=== PATIENT | female | born 2000 | race Caucasian/White ===

== ENCOUNTER 2019-05-12 12:52 | Emergency (ER) | payer MEDICAID, OTHER ==
[~2019-05-12] VITALS: Ht 162.6 cm; Wt 87.1 kg
--- OUTSIDE RECORDS SUMMARY | 2019-05-12 12:59 | XMS REPORT | Continuity of Care Document ---
Author Organization Unknown Address Unknown Phone Unavailable Allergies There is no data. Medications There is no data. Problems There is no data. Procedures There is no data. Results Test Result Range GC/CHLAMYDIA (SWAB OR URINE)-RAPID - 12/12/18 16:49 CHLAMYDIA TRACHOMATIS RNA, TMA NOT DETECTED NOT DETECTED NEISSERIA GONORRHOEAE RNA, TMA NOT DETECTED NOT DETECTED COMMENT NRG TSH w/ FREE T4 - 12/31/18 16:33 TSH 72.51 mIU/L NRG T4, FREE 0.5 ng/dL 0.8-1.4 Encounters ACCT No. Visit Date/Time Discharge Status Pt. Type Provider Facility Loc./Unit Complaint [id number] 04/17/2019 08:20:00 04/17/2019 23:59:59 [facility] [id number] 12/31/2018 15:45:00 Document Registration [id number] 12/12/2018 14:15:00 Document Registration
[2019-05-12] MEDS ORDERED: NS IV 1000 ML 1,000 ML IV SCH ×2 (13:14→13:43)
[2019-05-12] MEDS ORDERED: ONDANSETRON 4 MG/2 ML (SDV) Z0FRAN IV PRN (13:15)
[2019-05-12] MEDS ORDERED: cefTRIAXone FOR IV USE 1,000 MG in WATER (STERILE) FOR INJECTION 10 ML IV ONE (13:15)
[2019-05-12] MEDS ORDERED: ACETAMINOPHEN 500 MG TAB (TYLENOL) PO PRN (13:15)
[2019-05-12] MEDS ORDERED: KETOROLAC 30 MG/ML VIAL IVP ONE (13:15)
--- NOTE | 2019-05-12 13:30 | ED General ---
General Chief Complaint: Fever-Adult/Adol Stated Complaint: FEVER Nursing Triage Note: Started feeling bad two days ago with fever, nausea, vomiting, and abdominal pain. Fever has been up to 102 at home. Today has also developed a headache and body weakness. States she has been outside but does not recall any tick bites. Has not been around anyone that is already sick. Denies urinary symptoms but states she has not been able to drink enough and her urine is a darker color. Nursing Sepsis Screen: Possible Sepsis Risk History of Present Illness Date Seen by Provider: May 12, 2019 Time Seen by Provider: 13:00 Initial Comments The patient is a 19-year-old otherwise healthy female who presents with concern for 2 days of high fevers, gradual onset bilateral frontal headache, body aches, nausea/vomiting (with several episodes of nonbloody vomiting each day) and malaise. She presented initially to the clinic for evaluation of this issue where workup included urinalysis, strep and testing which were all negative per report from the practitioner at the clinic from whom I took report, and she was then sent here for further evaluation and treatment. Patient is tachycardic and has a high fever upon arrival to the emergency department but is alert and oriented and pleasantly and appropriately interactive and in no significant distress and other vital signs are appropriate. She reports some dark colored urine and some low back pain but denies fevers, upper respiratory congestion/rhinorrhea, sore throat, cough, shortness of breath or chest pain, focal abdominal pain of any kind, flank pain, dysuria or hematuria, unusual vaginal discharge or bleeding, changes in bowel habits. Patient does reports spending quite a bit of time outside in her yard with her son the past few weeks. She does not recollect any tick contact. Allergies and Home Medications Allergies Coded Allergies: No Known Drug Allergies (Unverified , 05/12/19) Patient Home Medication List Home Medication List Reviewed: Yes Review of Systems Review of Systems Constitutional: see HPI All Other Systems Reviewed Negative Unless Noted: Yes (Negative excepted noted.) Past Udwzktw-Hzwdtp-Cgngym Hx Past Med/Social Hx: Reviewed Nursing Past Med/Soc Hx Patient Social History Alcohol Use: Denies Use Recreational Drug Use: No Smoking Status: Never a Smoker 2nd Hand Smoke Exposure: No Recent Foreign Travel: No Contact w/Someone Who Travel: No Recent Infectious Disease Expo: No Recent Hopitalizations: No Physical Abuse: No Sexual Abuse: No Mistreated: No Fear: No Seasonal Allergies Seasonal Allergies: No Past Medical History Surgeries: Yes Gallbladder Respiratory: No Cardiac: No Neurological: No Genitourinary: No Gastrointestinal: No Musculoskeletal: No Endocrine: Yes Hypothyroidsim HEENT: No Cancer: No Psychosocial: No Integumentary: No Family Medical History Reviewed Nursing Family Hx Physical Exam Vital Signs Vital Signs - First Documented 05/12/19 12:55 Temp 103.4 Pulse 121 Resp 20 B/P (MAP) 121/60 (80) Pulse Ox 100 Capillary Refill : Less Than 3 Seconds Height, Weight, BMI Height: 5'4.00" Weight: 192lbs. oz. 87.480478ga; BMI Method:Stated General Appearance: No Apparent Distress Comments This is a young female appearing nontoxic and in no acute distress. Head is normocephalic and atraumatic. Neck is supple and nontender and without stiffness/meningismus of any kind. Oropharynx is moist. Lungs are clear to auscultation at all stations. There is normal S1 and S2 without rubs or gallops and capillary refill is appropriate, less than 2 seconds globally. There is a tachycardic, regular rhythm. Abdomen is soft, nontender and nondistended. Skin is warm and dry without cyanosis, clubbing or edema. There are no rashes. There is no obvious lymphadenopathy appreciated. Psychiatrically, the patient demonstrates appropriate mood and affect and is alert. Focused Exam Lactate Level 05/12/19 13:30: Lactic Acid Level 0.75 Lactic Acid Level Laboratory Tests Test 05/12/19 13:30 Lactic Acid Level 0.75 MMOL/L (0.50-2.00) Progress/Results/Core Measures Suspected Sepsis Recent Fever Within 48 Hours: Yes Infection Criteria Present: Suspected New Infection New/Unexplained Altered Menta: No Sepsis Screen: Possible Sepsis Risk SIRS Temperature:103.4 Pulse: 121 Respiratory Rate: 20 Laboratory Tests 05/12/19 13:30: White Blood Count 7.6 Blood Pressure 121 /60 Mean: 80 05/12/19 13:30: Lactic Acid Level 0.75 Laboratory Tests 05/12/19 13:30: Creatinine 0.80, Platelet Count 149, Total Bilirubin 0.6 Results/Orders Lab Results Laboratory Tests Test 05/12/19 12:55 05/12/19 13:30 Range/Units Urine Color YELLOW Urine Clarity SLT CLOUDY Urine pH 6.0 5-9 Urine Specific [place] 1.020 1.016-1.022 Urine Protein 1+ H NEGATIVE Urine Glucose (UA) NEGATIVE NEGATIVE Urine Ketones NEGATIVE NEGATIVE Urine Nitrite NEGATIVE NEGATIVE Urine Bilirubin NEGATIVE NEGATIVE Urine Urobilinogen 1.0 NORMAL MG/DL Urine Leukocyte Esterase NEGATIVE NEGATIVE Urine RBC (Auto) NEGATIVE NEGATIVE Urine RBC NONE /HPF Urine WBC 2-5 /HPF Urine Squamous Epithelial Cells 10-25 H /HPF Urine Crystals NONE /LPF Urine Bacteria FEW H /HPF Urine Casts NONE /LPF Urine Mucus MODERATE H /LPF Urine Culture Indicated NO Urine Test NEGATIVE NEGATIVE White Blood Count 7.6 4.3-11.0 10^3/uL Red Blood Count 4.91 4.35-5.85 10^6/uL Hemoglobin 14.1 11.5-16.0 G/DL Hematocrit 43 35-52 % Mean Corpuscular Volume 87 80-99 FL Mean Corpuscular Hemoglobin 29 25-34 PG Mean Corpuscular Hemoglobin Concent 33 32-36 G/DL Red Cell Distribution Width 12.2 10.0-14.5 % Platelet Count 149 130-400 10^3/uL Mean Platelet Volume 11.3 H 7.4-10.4 FL Neutrophils (%) (Auto) 78 H 42-75 % Lymphocytes (%) (Auto) 13 12-44 % Monocytes (%) (Auto) 9 0-12 % Eosinophils (%) (Auto) 0 0-10 % Basophils (%) (Auto) 0 0-10 % Neutrophils # (Auto) 5.9 1.8-7.8 X 10^3 Lymphocytes # (Auto) 1.0 1.0-4.0 X 10^3 Monocytes # (Auto) 0.7 0.0-1.0 X 10^3 Eosinophils # (Auto) 0.0 0.0-0.3 10^3/uL Basophils # (Auto) 1.0 H 0.0-0.1 10^3/uL Sodium Level 136 135-145 MMOL/L Potassium Level 3.5 L 3.6-5.0 MMOL/L Chloride Level 98 98-107 MMOL/L Carbon Dioxide Level 20 L 21-32 MMOL/L Anion Gap 18 H 5-14 MMOL/L Blood Urea Nitrogen 9 7-18 MG/DL Creatinine 0.80 0.60-1.30 MG/DL Estimat Glomerular Filtration Rate > 60 BUN/Creatinine Ratio 11 Glucose Level 94 70-105 MG/DL Lactic Acid Level 0.75 0.50-2.00 MMOL/L Calcium Level 9.4 8.5-10.1 MG/DL Corrected Calcium 8.5-10.1 MG/DL Total Bilirubin 0.6 0.1-1.0 MG/DL Aspartate Amino Transf (AST/SGOT) 21 5-34 U/L Alanine Aminotransferase (ALT/SGPT) 24 0-55 U/L Alkaline Phosphatase 77 40-136 U/L Total Protein 8.0 6.4-8.2 GM/DL Albumin 4.6 H 3.2-4.5 GM/DL Monoscreen NEGATIVE NEGATIVE My Orders Orders - IAN TOMAS MD Cbc With Automated Diff (05/12/19 13:14) Comprehensive Metabolic Panel (05/12/19 13:14) Blood Culture (05/12/19 13:14) Urinalysis (05/12/19 13:14) Urine Culture (05/12/19 13:14) Chest 1 View Ap/Pa Only (05/12/19 13:14) Acetaminophen Tablet (Tylenol Tablet) (05/12/19 13:15) Ed Iv/Invasive Line Start (05/12/19 13:14) Ondansetron Injection (Zofran Injectio (05/12/19 13:15) Lactic Acid Analyzer (05/12/19 13:14) Ns Iv 1000 Ml (Sodium Chloride 0.9%) (05/12/19 13:14) Ketorolac Injection (Toradol Injection) (05/12/19 13:15) Ceftriaxone For Iv Use (Rocephin For I (05/12/19 13:15) Hcg,Qualitative Urine (05/12/19 13:14) Monotest (05/12/19 13:14) Tick Panel With Lyme Eia (05/12/19 13:14) Ns Iv 1000 Ml (Sodium Chloride 0.9%) (05/12/19 13:43) Doxycycline Hyclate Tablet (Vibramycin T (05/12/19 14:31) Medications Given in ED Current Medications Medications Dose Ordered Sig/Tanesha Route Start Time Stop Time Status Last Admin Dose Admin Acetaminophen 1,000 mg ONCE PRN PO 7/28/19 13:15 05/12/19 13:35 DC 05/12/19 13:26 1,000 MG Ceftriaxone Sodium 1000 mg/ Sterile Water 10 ml @ 200 mls/hr ONCE ONCE IV 05/12/19 13:15 05/12/19 13:17 DC 05/12/19 14:21 200 MLS/HR Ketorolac Tromethamine 30 mg ONCE ONCE IVP 05/12/19 13:15 05/12/19 13:17 DC 05/12/19 13:26 30 MG Ondansetron HCl 4 mg PRN PRN IV 05/12/19 13:15 05/12/19 13:35 DC 05/12/19 13:26 4 MG Vital Signs/I&O 05/12/19 12:55 Temp 103.4 Pulse 121 Resp 20 B/P (MAP) 121/60 (80) Pulse Ox 100 Capillary Refill : Less Than 3 Seconds Blood Pressure Mean: 80 Progress Note : Time: 13:31 Progress Note Otherwise healthy young woman who presents with fever of unclear etiology. Urine testing was reportedly negative in the clinic but will repeat this along with additional workup as noted SIRS criteria are met and so we will draw blood cultures and then given a dose of empiric Rocephin along with fluids and will reevaluate after workup is completed. Tick panel has been sent given a great deal of outdoor time over the last few weeks and if no source is found for the patient's fever and she feels better after treatment we will plan for dismissal on an empiric course of doxycycline with very close follow-up in the clinic in the next 1-2 days. She understands and agrees with this plan of care. Update 1436: Patient is feeling better and is less febrile upon reassessment after treatment here in the emergency department. Large workup is without significant evidence of acute process aside from a left shift on her CBC differential. There is no clear source for the patient's fever by testing completed this afternoon. Blood cultures have been drawn and a tick panel has been sent. On reevaluation the patient is able to range her neck fully in all dimensions and denies any neck stiffness although she notes that her neck is a little sore, similar to other parts of her body in the setting of this acute illness. I do not feel that she will benefit from a lumbar puncture at this time, but I have discussed with her that if she develops significant neck stiffness/rigidity or any other new or severely worsened symptoms or concerns that she should return right away to the emergency department for reevaluation. We will have the patient followed up in the clinic tomorrow and will write her a work note. We will discharge with empiric doxycycline, Zofran for nausea and ibuprofen and Tylenol for fever and discomfort and the patient is to rest and copiously hydrated and, as above, see her physician tomorrow. All questions are answered. We will proceed with discharge home at this time. Diagnostic Imaging Comments XR chest: no acute process, EP interp Departure Impression Primary Impression: Fever Disposition: 01 HOME, SELF-CARE Condition: Improved Departure-Patient Inst. Decision time for Depature: 14:40 Referrals: CHEMA HEATH APRN (Family) Primary Care Physician Patient Instructions: Fever of Unknown Origin (DC) Add. Discharge Instructions: Take the doxycycline antibiotic twice a day for the next 10 days. Alternate ibuprofen and Tylenol as discussed for fever and discomfort. You may use Zofran under the tongue for nausea and vomiting. Rest and drink plenty of fluids. Return to the emergency department immediately if you develop worsening symptoms or any other new symptoms of concern. Follow up with your primary care doctor tomorrow at the appointment we have made for you. Scripts Ondansetron (Ondansetron Odt) 4 Mg Tab.rapdis 4 MG PO Q8H, #10 TAB Prov: IAN TOMAS MD 05/12/19 Acetaminophen (Tylenol Extra Strength) 500 Mg Tablet 1000 MG PO Q8H for Pain, #50 TAB Prov: IAN TOMAS MD 05/12/19 Ibuprofen (Ibuprofen) 800 Mg Tablet 800 MG PO Q8H PRN for PAIN, #30 TAB 0 Refills Prov: IAN TOAMS MD 05/12/19 Doxycycline Hyclate (Doxycycline Hyclate) 100 Mg Tablet 100 MG PO BID for 10 Days, #20 TAB 0 Refills Prov: IAN TOMAS MD 05/12/19 Work/School Note: Work Release Form Date Seen in the Emergency Department: May 12, 2019 Return to Work: May 15, 2019 Restrictions: No Restrictions IAN TOMAS MD May 12, 2019 13:30
[2019-05-12 13:49] LABS: HEMATOCRIT 43 % (35-52); HEMOGLOBIN 14.1 G/DL (11.5-16.0); MEAN CORPUSCULAR HEMOGLOBIN 29 PG (25-34); WHITE BLOOD COUNT 7.6 10^3/uL (4.3-11.0)
[2019-05-12 13:50] LABS: BASOPHILS % (AUTO) 0 % (0-10); EOSINOPHILS % (AUTO) 0 % (0-10); LYMPHOCYTES % (AUTO) 13 % (12-44); MEAN CORPUSCULAR HGB CONC 33 G/DL (32-36); MEAN CORPUSCULAR VOLUME 87 FL (80-99); MEAN PLATELET VOLUME 11.3 FL (7.4-10.4); MONOCYTES # (AUTO) 0.7 X 10^3 (0.0-1.0); MONOCYTES % (AUTO) 9 % (0-12); NEUTROPHILS # (AUTO) 5.9 X 10^3 (1.8-7.8); NEUTROPHILS % (AUTO) 78 % (42-75); PLATELET COUNT 149 10^3/uL (130-400); RED CELL DISTRIBUTION WIDTH 12.2 % (10.0-14.5)
[2019-05-12 14:06] LABS: BILIRUBIN,URINE NEGATIVE (NEGATIVE); CLARITY,URINE SLT CLOUDY; COLOR,URINE YELLOW; GLUCOSE, URINE (UA) NEGATIVE (NEGATIVE); KETONES,URINE NEGATIVE (NEGATIVE); LEUKOCYTE ESTERASE ,URINE NEGATIVE (NEGATIVE); NITRITE,URINE NEGATIVE (NEGATIVE); PROTEIN,URINE 1+ (NEGATIVE)
[2019-05-12 14:07] LABS: BACTERIA,URINE FEW /HPF
[2019-05-12 14:09] LABS: BUN/CREATININE RATIO 11; CARBON DIOXIDE 20 MMOL/L (21-32); CHLORIDE 98 MMOL/L (98-107); GFR ESTIMATED > 60; POTASSIUM 3.5 MMOL/L (3.6-5.0); SODIUM 136 MMOL/L (135-145)
--- NOTE | 2019-05-12 14:09 | Diagnostic Imaging Report ---
Indication: Nausea, vomiting and fever. No comparison available. Findings: Lungs appear clear without focal infiltrate or effusion. There is no pneumothorax. The heart size and mediastinal contours appear appropriate pulmonary vascularity appears normal. There is no acute or suspicious osseous abnormality. There is a dextroscoliosis of the thoracic spine. Impression: 1. No radiographic evidence of an acute cardiopulmonary process. 2. Thoracic dextroscoliosis. Dictated by: Dictated on workstation # [id number]
[2019-05-12 14:10] LABS: ALANINE AMINOTRANSFERASE 24 U/L (0-55); ALBUMIN 4.6 GM/DL (3.2-4.5); ALKALINE PHOSPHATASE 77 U/L (40-136); BILIRUBIN,TOTAL 0.6 MG/DL (0.1-1.0); CALCIUM 9.4 MG/DL (8.5-10.1); GLUCOSE 94 MG/DL (70-105)
[2019-05-12] MEDS ORDERED: DOXYCYCLINE 100 MG (VIBRAMYCIN) TABLET PO STA (14:31)
[2019-05-12] MEDS ORDERED: ACET-2267 PO (14:44)
[2019-05-12] MEDS ORDERED: IBUP-1780 PO (14:44)
[2019-05-12] MEDS ORDERED: ONDA4TAB11 PO (14:44)
[2019-05-12] MEDS ORDERED: DOXY100T2 PO (14:44)
[2019-05-12 15:00] VITALS: BP 95/58
== END 2019-05-12 15:04 | disposition home or self-care (01) ==
LOC: ER FS 12:55
DX: R50.9 Fever, unspecified (principal); E03.9 Hypothyroidism, unspecified
CPT/HCPCS: 36415; 71045; 80053; 81000; 83605; 84703; 85025; 86308; 86618; 86666; 86668; 86757; 87040; 87088; 96374; 96375

== ENCOUNTER 2020-07-12 07:04 | Emergency (ER) | payer SELFPAY ==
[~2020-07-12] VITALS: Ht 162.5 cm; Wt 107.9 kg
[~2020-07-12 07:04] MED LIST: ACET-2267 PO; DOXY100T2 PO; IBUP-1780 PO; ONDA4TAB11 PO
--- NOTE | 2020-07-12 07:20 | ED GI ---
General Chief Complaint: Abdominal/GI Problems Stated Complaint: ABD PAIN Source of Information: Patient History of Present Illness Date Seen by Provider: Jul 12, 2020 Time Seen by Provider: 07:14 Initial Comments 20-year-old female presenting with intermittent right flank and abdominal pain. She states that this is been intermittent for the last month but was worse today since 3 AM. She has nausea and vomiting when the pain is severe. She feels like her urine has been darker when the pain is more severe. She has an IUD and has not had a menstrual period for several months. She denies fever or chills. She d enies any diarrhea but states she has had chronic softer stools since having her cholecystectomy. She did take some ibuprofen this am and it helped keep her pain from being so severe but it has not completely resolved. She denies any vaginal discharge or bleeding today. She has no other surgeries on her abdomen. She denies blood in her stools. Allergies and Home Medications Allergies Coded Allergies: No Known Drug Allergies (Unverified , 05/12/19) Home Medications Acetaminophen 500 Mg Tablet, 1,000 MG PO Q8H Prescribed by: IAN TOMAS on 05/12/191443 Doxycycline Hyclate 100 Mg Tablet, 100 MG PO BID Prescribed by: IAN TOMAS on 05/12/19 144 Hydrocodone/Acetaminophen 1 Each Tablet, 1 EACH PO Q6H PRN for PAIN-SEVERE (8- 10) Prescribed by: MARIA FERNANDA JEREZ on 07/12/20827 Ibuprofen 800 Mg Tablet, 800 MG PO Q8H PRN for PAIN Prescribed by: IAN TOMAS on 05/12/19 144 Ibuprofen 800 Mg Tablet, 800 MG PO Q8H PRN for PAIN Prescribed by: MARIA FERNANDA JEREZ on 07/12/20826 Levothyroxine Sodium 75 Mcg Tablet, 75 MCG PO DAILY, (Reported) Ondansetron 4 Mg Tab.rapdis, 4 MG PO Q8H Prescribed by: IAN TOMAS on 05/12/191443 Tamsulosin HCl 0.4 Mg Cap, 0.4 MG PO DAILY Prescribed by: MARIA FERNANDA JEREZ on 07/12/20826 Patient Home Medication List Home Medication List Reviewed: Yes Review of Systems Review of Systems Constitutional: No chills, No fever EENTM: No Symptoms Reported Respiratory: No Symptoms Reported Cardiovascular: No Symptoms Reported Gastrointestinal: See HPI Genitourinary: See HPI Musculoskeletal: no symptoms reported Skin: no symptoms reported Psychiatric/Neurological: No Symptoms Reported Past Eafwhyr-Pwprfb-Anrplc Hx Past Med/Social Hx: Reviewed Nursing Past Med/Soc Hx Patient Social History 2nd Hand Smoke Exposure: No Recent Hopitalizations: No Seasonal Allergies Seasonal Allergies: No Past Medical History Surgeries: Yes Gallbladder Respiratory: No Cardiac: No Neurological: No Genitourinary: No Gastrointestinal: No Musculoskeletal: No Endocrine: Yes Hypothyroidsim HEENT: No Cancer: No Psychosocial: No Integumentary: No Physical Exam Vital Signs Vital Signs - First Documented 07/12/20 07:10 Temp 36.2 Pulse 93 Resp 16 B/P (MAP) 112/69 (83) Pulse Ox 99 O2 Delivery Room Air Capillary Refill : Height/Weight/BMI Height: 5'4.00" Weight: 192lbs. oz. 87.710951pr; BMI Method:Stated General Appearance: WD/WN, mild distress, obese HEENT: PERRL/EOMI Neck: non-tender, full range of motion, supple, normal inspection Respiratory: chest non-tender, lungs clear, normal breath sounds, no respirat ory distress, no accessory muscle use Cardiovascular: normal peripheral pulses, regular rate, rhythm Gastrointestinal: normal bowel sounds, soft, no pulsatile mass; No distended, No guarding, No rebound; tenderness (right CVA and wraps around to right lower quadrant) Rectal: deferred Extremities: normal range of motion, non-tender, normal capillary refill Neurologic/Psychiatric: oracle bpm consultant II-XII nml as tested, alert, oriented x 3 Skin: normal color, warm/dry Progress/Results/Core Measures Results/Orders Lab Results Laboratory Tests Test 07/12/20 07:15 07/12/20 07:40 Range/Units Urine Color DARK YELLOW Urine Clarity SL CLOUDY Urine pH 6.0 5-9 Urine Specific [place] >=1.030 1.016-1.022 Urine Protein 1+ H NEGATIVE Urine Glucose (UA) NEGATIVE NEGATIVE Urine Ketones NEGATIVE NEGATIVE Urine Nitrite NEGATIVE NEGATIVE Urine Bilirubin NEGATIVE NEGATIVE Urine Urobilinogen 0.2 < = 1.0 MG/DL Urine Leukocyte Esterase NEGATIVE NEGATIVE Urine RBC (Auto) 3+ H NEGATIVE Urine RBC >100 H /HPF Urine WBC 2-5 /HPF Urine Squamous Epithelial Cells 10-25 H /HPF Urine Crystals NONE /LPF Urine Bacteria FEW H /HPF Urine Casts NONE /LPF Urine Mucus LARGE H /LPF Urine Culture Indicated NO White Blood Count 6.9 4.3-11.0 10^3/uL Red Blood Count 4.82 4.35-5.85 10^6/uL Hemoglobin 14.4 11.5-16.0 G/DL Hematocrit 41 35-52 % Mean Corpuscular Volume 86 80-99 FL Mean Corpuscular Hemoglobin 30 25-34 PG Mean Corpuscular Hemoglobin Concent 35 32-36 G/DL Red Cell Distribution Width 12.2 10.0-14.5 % Platelet Count 273 130-400 10^3/uL Mean Platelet Volume 10.1 7.4-10.4 FL Immature Granulocyte % (Auto) 0 % Neutrophils (%) (Auto) 72 42-75 % Lymphocytes (%) (Auto) 19 12-44 % Monocytes (%) (Auto) 8 0-12 % Eosinophils (%) (Auto) 1 0-10 % Basophils (%) (Auto) 0 0-10 % Neutrophils # (Auto) 5.0 1.8-7.8 X 10^3 Lymphocytes # (Auto) 1.3 1.0-4.0 X 10^3 Monocytes # (Auto) 0.5 0.0-1.0 X 10^3 Eosinophils # (Auto) 0.0 0.0-0.3 10^3/uL Basophils # (Auto) 0.0 0.0-0.1 10^3/uL Immature Granulocyte # (Auto) 0.0 0.0-0.1 10^3/uL Sodium Level 140 135-145 MMOL/L Potassium Level 4.1 3.6-5.0 MMOL/L Chloride Level 103 98-107 MMOL/L Carbon Dioxide Level 25 21-32 MMOL/L Anion Gap 12 5-14 MMOL/L Blood Urea Nitrogen 7 7-18 MG/DL Creatinine 0.78 0.60-1.30 MG/DL Estimat Glomerular Filtration Rate > 60 BUN/Creatinine Ratio 9 Glucose Level 103 70-105 MG/DL Calcium Level 9.7 8.5-10.1 MG/DL Corrected Calcium 8.5-10.1 MG/DL Total Bilirubin 0.5 0.1-1.0 MG/DL Aspartate Amino Transf (AST/SGOT) 58 H 5-34 U/L Alanine Aminotransferase (ALT/SGPT) 102 H 0-55 U/L Alkaline Phosphatase 87 40-136 U/L Total Protein 7.7 6.4-8.2 GM/DL Albumin 5.0 H 3.2-4.5 GM/DL Lipase 31 8-78 U/L My Orders Orders - MARIA FERNANDA JEREZ MD Ua Culture If Indicated (07/12/20 07:10) Urine Bedside (07/12/20 07:10) Comprehensive Metabolic Panel (07/12/20 07:28) Lipase (07/12/20 07:28) Ed Iv/Invasive Line Start (07/12/20 07:28) Cbc With Automated Diff (07/12/20 07:28) Ns Iv 1000 Ml (Sodium Chloride 0.9%) (07/12/20 07:28) Ondansetron Injection (Zofran Injectio (07/12/20 07:28) Ketorolac Injection (Toradol Injection) (07/12/20 07:28) Ct Abd/Pelvis Wo(Kidney Stone) (07/12/20 07:28) Strain Urine (07/12/20 08:29) Vital Signs/I&O 07/12/20 07/12/20 07/12/20 07/12/20 07:10 07:47 08:15 09:22 Temp 36.2 36.2 36.2 36.1 Pulse 93 85 Resp 16 16 B/P (MAP) 112/69 (83) 116/65 (83) Pulse Ox 99 99 O2 Delivery Room Air Progress Progress Note #1: Progress Note Bedside Urine HCG negative. UA sent to lab. Obtain labs, IV access. Give IVF for hydration, Toradol for pain, Zofran for nausea. CT scan without contrast to check for possible kidney stone vs colitis vs pathology in right flank to cause her pain intermittent for last month. Progress Note #2: Time: 08:11 Progress Note CBC without acute significant abnormality. UA shows elevated specific gravity for concentration and large amount of blood concerning for possible kidney stone. Chemistry and CT scan report pending. Progress Note #3: Progress Note chemistry stable without renal abnormality. CT scan does show kidney stone in mid ureter on right side with mild hydroureter and hydronephrosis. Counseled patient on results. Start on Flomax as well as prescribe a few hydrocodone and ibuprofen. Encouraged fluids and rest. Advised that she may need to have urology help get the stone to pass. Stressed importance of drinking plenty of water and staying well-hydrated to the point of making her urine is clear as possible. Diagnostic Imaging Diagonstic Imaging: CT Plain Films/CT/US/NM/MRI: abdomen, pelvis Comments NAME: [facility] REC#: [id number] PT STATUS: REG ER : 2000 PHYSICIAN: MARIA FERNANDA JEREZ MD ADMIT DATE: 07/12/20/ER FS Draft Date of Exam:07/12/20 CT ABD/PELVIS WO(KIDNEY STONE) PROCEDURE: CT urinary tract, rule out kidney stone. TECHNIQUE: Multiple contiguous axial images were obtained through the abdomen and pelvis without the use of intravenous contrast. Auto Exposure Controls were utilized during the CT exam to meet ALARA standards for radiation dose reduction. Indication: Right lower quadrant pain for one month, worsening. Comparison: None. Discussion: The lung bases are well-aerated. Normal heart size. No pleural or pericardial fluid. Fatty hepatomegaly is noted. The gallbladder surgically absent. The liver, stomach, pancreas, and adrenal glands are unremarkable. The spleen is enlarged measuring 13.6 cm. There is mild right hydronephrosis secondary to a 3 mm stone within the proximal right ureter. The bladder is decompressed. No hydronephrosis on the left. IUD is noted within the uterus. The appendix is normal. No obstruction, pneumatosis, or pneumoperitoneum. No ascites or abnormal lymph nodes. No osseous abnormality identified. Impression: 1. A 3 mm stone within the proximal right ureter with mild right hydronephrosis. 2. Fatty hepatomegaly with additional splenomegaly. Dictated on workstation # [id number] Dict: 07/12/20817 Trans: 07/12/20 0823 LIGIA [id number] Interpreted by: EMELY ELLIS MD Electronically signed by: Reviewed: Reviewed by Me Departure Impression Primary Impression: Renal colic on right side Additional Impressions: Right ureteral calculus Hydroureter on left Hydroureteronephrosis Disposition: 01 HOME, SELF-CARE Condition: Stable Departure-Patient Inst. Decision time for Depature: 08:30 Referrals: [facility][1[facility] [place] ([place]) Primary Care Physician CHEMA HEATH APRN (Family) Primary Care Physician FABY FAIRBANKS MD Patient Instructions: Renal Colic (DC), Kidney Stones (DC), Kidney Stone Diet, How to Strain Your Urine Add. Discharge Instructions: Make sure to drink more water and avoid drinking carbonated and caffeinated drinks as these can contribute to causing more kidney stones to develop Follow up with clinic and Urology as you may need a procedure to help the kidney stone to pass Try taking Flomax to help the ureter relax and help the stone try to pass. Strain your urine to see if the stone passes in your urine. If the pain becomes more severe and is not helped with the medicine, you have a fever over 101 F, or uncontrolled vomiting then you will need to be rechecked as you may need to be admitted to have urology help remove the stone and treat an infection associated with the kidney stone. All discharge instructions reviewed with patient and/or family. Voiced understanding. Scripts Hydrocodone/Acetaminophen (Hydrocodone-Acetamin 5-325 mg) 1 Each Tablet 1 EACH PO Q6H PRN for PAIN-SEVERE (8-10) for 3 Days, #12 TAB 0 Refills Prov: MARIA FERNANDA JEREZ MD 07/12/20 Ibuprofen (Ibuprofen) 800 Mg Tablet 800 MG PO Q8H PRN for PAIN for 10 Days, #30 TAB 0 Refills Prov: MARIA FERNANDA JEREZ MD 07/12/20 Tamsulosin HCl (Flomax) 0.4 Mg Cap 0.4 MG PO DAILY for renal colic for 7 Days, #7 CAP 0 Refills Prov: MARIA FERNANDA JEREZ MD 07/12/20 MARIA FERNANDA JEREZ MD Jul 12, 2020 07:20
[2020-07-12] MEDS ORDERED: ONDANSETRON 4 MG/2 ML (SDV) Z0FRAN IVP STA (07:28)
[2020-07-12] MEDS ORDERED: NS IV 1000 ML 1,000 ML IV STA (07:28)
[2020-07-12] MEDS ORDERED: KETOROLAC 30 MG/ML VIAL IVP STA (07:28)
[2020-07-12 07:31] LABS: BACTERIA,URINE FEW /HPF; BILIRUBIN,URINE NEGATIVE (NEGATIVE); CLARITY,URINE SL CLOUDY; COLOR,URINE DARK YELLOW; GLUCOSE, URINE (UA) NEGATIVE (NEGATIVE); KETONES,URINE NEGATIVE (NEGATIVE); LEUKOCYTE ESTERASE ,URINE NEGATIVE (NEGATIVE); NITRITE,URINE NEGATIVE (NEGATIVE); PROTEIN,URINE 1+ (NEGATIVE); RBC,URINE >100 /HPF
[2020-07-12] MEDS ORDERED: LEVO75TA6 PO (07:35)
[2020-07-12 07:53] LABS: EOSINOPHILS % (AUTO) 1 % (0-10); HEMATOCRIT 41 % (35-52); HEMOGLOBIN 14.4 G/DL (11.5-16.0); LYMPHOCYTES % (AUTO) 19 % (12-44); MEAN CORPUSCULAR HEMOGLOBIN 30 PG (25-34); MEAN CORPUSCULAR HGB CONC 35 G/DL (32-36); MEAN CORPUSCULAR VOLUME 86 FL (80-99); MEAN PLATELET VOLUME 10.1 FL (7.4-10.4); MONOCYTES % (AUTO) 8 % (0-12); NEUTROPHILS % (AUTO) 72 % (42-75); PLATELET COUNT 273 10^3/uL (130-400); WHITE BLOOD COUNT 6.9 10^3/uL (4.3-11.0)
[2020-07-12 07:54] LABS: BASOPHILS % (AUTO) 0 % (0-10); LYMPHOCYTES # (AUTO) 1.3 X 10^3 (1.0-4.0); MONOCYTES # (AUTO) 0.5 X 10^3 (0.0-1.0)
[2020-07-12 08:11] LABS: ALANINE AMINOTRANSFERASE 102 U/L (0-55); ALKALINE PHOSPHATASE 87 U/L (40-136); BILIRUBIN,TOTAL 0.5 MG/DL (0.1-1.0); BUN/CREATININE RATIO 9; CALCIUM 9.7 MG/DL (8.5-10.1); CARBON DIOXIDE 25 MMOL/L (21-32); CHLORIDE 103 MMOL/L (98-107); CREATININE SERUM 0.78 MG/DL (0.60-1.30); GFR ESTIMATED > 60; GLUCOSE 103 MG/DL (70-105); POTASSIUM 4.1 MMOL/L (3.6-5.0); SODIUM 140 MMOL/L (135-145)
[2020-07-12 08:12] LABS: LIPASE 31 U/L (8-78); TOTAL PROTEIN 7.7 GM/DL (6.4-8.2)
--- NOTE | 2020-07-12 08:23 | Diagnostic Imaging Report ---
PROCEDURE: CT urinary tract, rule out kidney stone. TECHNIQUE: Multiple contiguous axial images were obtained through the abdomen and pelvis without the use of intravenous contrast. Auto Exposure Controls were utilized during the CT exam to meet ALARA standards for radiation dose reduction. Indication: Right lower quadrant pain for one month, worsening. Comparison: None. Discussion: The lung bases are well-aerated. Normal heart size. No pleural or pericardial fluid. Fatty hepatomegaly is noted. The gallbladder surgically absent. The liver, stomach, pancreas, and adrenal glands are unremarkable. The spleen is enlarged measuring 13.6 cm. There is mild right hydronephrosis secondary to a 3 mm stone within the proximal right ureter. The bladder is decompressed. No hydronephrosis on the left. IUD is noted within the uterus. The appendix is normal. No obstruction, pneumatosis, or pneumoperitoneum. No ascites or abnormal lymph nodes. No osseous abnormality identified. Impression: 1. A 3 mm stone within the proximal right ureter with mild right hydronephrosis. 2. Fatty hepatomegaly with additional splenomegaly. Dictated by: Dictated on workstation # [id number]
[2020-07-12] MEDS ORDERED: TMSL.4C PO (08:27)
[2020-07-12] MEDS ORDERED: IBUP-1780 PO (08:27)
[2020-07-12] MEDS ORDERED: ACHD5005 PO (08:27)
[2020-07-12 09:22] VITALS: BP 111/90
== END 2020-07-12 09:22 | disposition home or self-care (01) ==
LOC: EDUNIT# 07:04 → ER FS 07:05
DX: N23 Unspecified renal colic (principal); N13.2 Hydronephrosis with renal and ureteral calculous obstruction; N13.4 Hydroureter; N13.30 Unspecified hydronephrosis; E66.9 Obesity, unspecified; Z68.45 Body mass index [BMI] 70 or greater, adult; E03.9 Hypothyroidism, unspecified; Z79.890 Hormone replacement therapy; Z90.49 Acquired absence of other specified parts of digestive tract
CPT/HCPCS: 36415; 74176; 80053; 81000; 83690; 84703; 85025

== ENCOUNTER 2021-08-07 06:00 | Emergency (ER) | payer SELFPAY ==
[~2021-08-07] VITALS: Ht 162.5 cm; Wt 101.2 kg
[~2021-08-07 06:00] MED LIST changes: +ACHD5005 PO; +LEVO75TA6 PO; +TMSL.4C PO
--- NOTE | 2021-08-07 06:36 | ED GU-Female ---
General Chief Complaint: - Reproductive Stated Complaint: VAGINAL BLEEDING DURING PREG Nursing Triage Note: Patient states that she got a positive test on 08/03. Patient had been spotting brown blood but it has turned into heavy bright red bleeding. Patient denies having any cramps. Source: patient (JOAQUINGINI BROWN) History of Present Illness Date Seen by Provider: Aug 07, 2021 Time Seen by Provider: 06:15 Initial Comments Patient is 21-year-old G3, P1, Ab1, estimated to 3-week female with quantitative hCG confirmed 4 days ago presents with bright red vaginal bleeding starting this morning. Patient denies pelvic or vaginal cramping. Denies dizziness lightheadedness shortness of breath. Patient has not been using pads and is unsure how much bleeding she has. Patient had an IUD removed at the end of April and had her first sexual encounter on July 07 which was unprotected. Patient took Plan B the following day and had a positive home test on August 03 after missing her menstrual period . She denies any symptoms at this time other than vaginal bleeding. Timing/Duration: this morning Severity/Quality: mild Location: other Radiation: other Activities at Onset: other Sexual [place] History: other Modifying Factors: Improves With Other (GINI NUÑEZ DO) Allergies and Home Medications Allergies Coded Allergies: No Known Drug Allergies (Unverified , 05/12/19) Patient Home Medication List Home Medication List Reviewed: Yes (GINI NUÑEZ DO) Ibuprofen (Ibuprofen) 800 Mg Tablet, 800 MG PO Q8H PRN for PAIN Prescribed by: MARIA FERNANDA JEREZ on 07/12/20 0827 Levothyroxine Sodium (Levothyroxine Sodium) 75 Mcg Tablet, 75 MCG PO DAILY, (Reported) Entered as Reported by: SILVERIO GUZMÁN on 07/12/20 0735 Ondansetron (Ondansetron Odt) 4 Mg Tab.rapdis, 4 MG PO Q8H Prescribed by: IAN TOMAS on 05/12/19 1444 Tamsulosin HCl (Flomax) 0.4 Mg Cap, 0.4 MG PO DAILY Prescribed by: MARIA FERNANDA JEREZ on 07/12/20 08 Review of Systems Review of Systems Constitutional: see HPI EENTM: see HPI Cardiovascular: see HPI Gastrointestinal: see HPI Genitourinary: see HPI Musculoskeletal: see HPI Skin: see HPI Psychiatric/Neurological: See HPI Endocrine: See HPI Hematologic/Lymphatic: See HPI (GINI NUÑEZ DO) Past Iguchpk-Hnglpg-Ymawee Hx Patient Social History Tobacco Use?: No E-Cig or Vaping type used: Nicotine Substance use?: No Alcohol Use?: No Pt feels they are or have been: No (GINI NUÑEZ DO) Seasonal Allergies Seasonal Allergies: No (GINI NUÑEZ DO) Past Medical History Surgeries: Yes Gallbladder Respiratory: No Cardiac: No Neurological: No COMMERCIAL PROPERTY MANAGER History: IUD Genitourinary: No Gastrointestinal: No Musculoskeletal: No Endocrine: Yes Hypothyroidsim HEENT: No Cancer: No Psychosocial: No Integumentary: No (GINI NUÑEZ DO) Physical Exam Vital Signs Vital Signs - First Documented 08/07/21 06:04 Temp 36.8 Pulse 86 Resp 18 B/P (MAP) 141/94 (110) Pulse Ox 98 O2 Delivery Room Air (TRACYStabiliz OrthopaedicsRAND DO) Vital Signs Capillary Refill : Less Than 3 Seconds (GINI NUÑEZ DO) Height, Weight, BMI Height: 5'4.00" Weight: 192lbs. oz. 87.573467yp; 38.00 BMI Method:Stated General Appearance: WD/WN, no apparent distress HEENT: PERRL/EOMI Cardiovascular: regular rate, rhythm Respiratory: lungs clear, normal breath sounds Gastrointestinal: non tender, soft Genital/Rectal: other (Vaginal bleed) Extremities: normal range of motion, non-tender (GINI NUÑEZ DO) Focused Exam Sepsis Stage: Ruled Out (GINI NUÑEZ DO) Progress/Results/Core Measures Suspected Sepsis SIRS Temperature: Pulse: 86 Respiratory Rate: 18 Blood Pressure 141 /94 Mean: 110 (GINI NUÑEZ DO) Results/Orders Lab Results Laboratory Tests Test 08/07/21 06:41 Range/Units White Blood Count 6.2 4.3-11.0 10^3/uL Red Blood Count 4.97 3.80-5.11 10^6/uL Hemoglobin 14.5 11.5-16.0 g/dL Hematocrit 43 35-52 % Mean Corpuscular Volume 86 80-99 fL Mean Corpuscular Hemoglobin 29 25-34 pg Mean Corpuscular Hemoglobin Concent 34 32-36 g/dL Red Cell Distribution Width 12.3 10.0-14.5 % Platelet Count 277 130-400 10^3/uL Mean Platelet Volume 10.2 9.0-12.2 fL Immature Granulocyte % (Auto) 0 % Neutrophils (%) (Auto) 66 42-75 % Lymphocytes (%) (Auto) 23 12-44 % Monocytes (%) (Auto) 8 0-12 % Eosinophils (%) (Auto) 2 0-10 % Basophils (%) (Auto) 1 0-10 % Neutrophils # (Auto) 4.1 1.8-7.8 X 10^3 Lymphocytes # (Auto) 1.5 1.0-4.0 X 10^3 Monocytes # (Auto) 0.5 0.0-1.0 X 10^3 Eosinophils # (Auto) 0.1 0.0-0.3 10^3/uL Basophils # (Auto) 0.0 0.0-0.1 10^3/uL Immature Granulocyte # (Auto) 0.0 0.0-0.1 10^3/uL Human Chorionic Gonadotropin, Quant 6 H <5 MIU/ML (RAND SUE DO) Vital Signs/I&O 08/07/21 08/07/21 06:04 07:53 Temp 36.8 Pulse 86 69 Resp 18 17 B/P (MAP) 141/94 (110) 127/68 Pulse Ox 98 100 O2 Delivery Room Air Room Air (RAND SUE DO) Vital Signs/I&O Capillary Refill : Less Than 3 Seconds (GINI NUÑEZ DO) Blood Pressure Mean: 110 Progress Note : Progress Note reviewed labs, including HCG quant = 6. patient w painless spotting occurring this morning. LMP in may, pt not sure. w previous early miscarriage. Advised f/u w [facility] on Monday for repeat quant. PT expresses understanding. (RAND SUE DO) Departure Communication (Admissions) Asymptomatic vaginal bleeding with confirmed positive home test 4 days ago. Will obtain Rh, CBC and quant hCG to determine need for ultrasound testing. Care to be transitioned to oncoming ERP at 07:00 (GINI NUÑEZ DO) Impression Primary Impression: Threatened in early Disposition: HOME, SELF-CARE Condition: Stable Departure-Patient Inst. Decision time for Depature: 07:38 (RAND SUE DO) Referrals: [facility] (PCP) Primary Care Physician CHEMA HEATH APRN (Family) Primary Care Physician Patient Instructions: Threatened Miscarriage (DC), Bleeding in Early ED Add. Discharge Instructions: Follow up with your OB doctor on Monday for follow up blood work. All discharge instructions reviewed with patient and/or family. Voiced understanding. Work/School Note: Work Release Form Date Seen in the Emergency Department: Aug 07, 2021 Return to Work: Aug 08, 2021 Restrictions: No Restrictions GINI NUÑEZ DO Aug 07, 2021 06:36 RNAD SUE DO Aug 07, 2021 07:42
[2021-08-07 07:07] LABS: HEMATOCRIT 43 % (35-52); HEMOGLOBIN 14.5 g/dL (11.5-16.0); MEAN CORPUSCULAR HEMOGLOBIN 29 pg (25-34); WHITE BLOOD COUNT 6.2 10^3/uL (4.3-11.0)
[2021-08-07 07:09] LABS: BASOPHILS % (AUTO) 1 % (0-10); EOSINOPHILS # (AUTO) 0.1 10^3/uL (0.0-0.3); EOSINOPHILS % (AUTO) 2 % (0-10); LYMPHOCYTES # (AUTO) 1.5 X 10^3 (1.0-4.0); LYMPHOCYTES % (AUTO) 23 % (12-44); MEAN CORPUSCULAR HGB CONC 34 g/dL (32-36); MEAN CORPUSCULAR VOLUME 86 fL (80-99); MEAN PLATELET VOLUME 10.2 fL (9.0-12.2); MONOCYTES % (AUTO) 8 % (0-12); NEUTROPHILS # (AUTO) 4.1 X 10^3 (1.8-7.8); NEUTROPHILS % (AUTO) 66 % (42-75); PLATELET COUNT 277 10^3/uL (130-400)
[2021-08-07 07:10] LABS: MONOCYTES # (AUTO) 0.5 X 10^3 (0.0-1.0)
[2021-08-07 07:53] VITALS: BP 127/68
== END 2021-08-07 07:53 | disposition home or self-care (01) ==
LOC: EDUNIT# 06:00 → ER FS 06:02
DX: O20.0 Threatened abortion (principal); O99.281 Endocrine, nutritional and metabolic diseases complicating pregnancy, first trimester; E03.9 Hypothyroidism, unspecified; Z79.890 Hormone replacement therapy; Z3A.01 Less than 8 weeks gestation of pregnancy
CPT/HCPCS: 36415; 84702; 85025; 86900; 86901; 99282

== ENCOUNTER 2021-10-25 17:15 | Emergency (ER) | payer MEDICAID, OTHER ==
[~2021-10-25] VITALS: Ht 162.6 cm; Wt 94.8 kg
--- NOTE | 2021-10-25 17:22 | ED Fever ---
History of Present Illness General Chief Complaint: COVID19 Suspect/Confirmed Stated Complaint: COVID+,VOMITTING,TROUBLE BREATHING History of Present Illness Date Seen by Provider: Oct 25, 2021 Time Seen by Provider: 17:22 Initial Comments 21-year-old female presents with cough, feeling of shortness of breath, vomiting. Patient is also 11 weeks . Patient reports her symptoms started about 4 days ago. That she tested positive for Covid this morning. Patient reports she does have a hard time keeping anything down. She just has some generalized malaise and not feeling well. No reports of any fever. Allergies and Home Medications Allergies Coded Allergies: No Known Drug Allergies (Unverified , 05/12/19) Patient Home Medication List Home Medication List Reviewed: Yes Doxylamine Succinate/Vit B6 (Doxylamine-Pyridoxine 10-10 mg) 1 Each Tablet.dr, 1 EACH PO Q6H PRN for NAUSEA-1ST LINE Prescribed by: MOLLY KIM on 10/25/21 1750 Ibuprofen (Ibuprofen) 800 Mg Tablet, 800 MG PO Q8H PRN for PAIN Prescribed by: MARIA FERNANDA JEREZ on 07/12/20 08 Levothyroxine Sodium (Levothyroxine Sodium) 75 Mcg Tablet, 75 MCG PO DAILY, (Reported) Entered as Reported by: SILVERIO GUZMÁN on 07/12/20 0735 Ondansetron (Ondansetron Odt) 4 Mg Tab.rapdis, 4 MG PO Q8H Prescribed by: IAN TOMAS on 05/12/19 1444 Tamsulosin HCl (Flomax) 0.4 Mg Cap, 0.4 MG PO DAILY Prescribed by: MARIA FERNANDA JEREZ on 07/12/20 08 Review of Systems Review of Systems Constitutional: No fever; malaise Respiratory: cough, short of breath Cardiovascular: No chest pain, No palpitations Gastrointestinal: No abdominal pain; nausea, vomiting Musculoskeletal: no symptoms reported Skin: no symptoms reported Psychiatric/Neurological: No Symptoms Reported Past Wzqpafp-Yxmsrx-Pxrozz Hx Seasonal Allergies Seasonal Allergies: No Past Medical History Surgeries: Yes Gallbladder Respiratory: No Cardiac: No Neurological: No [employer] PULP History: IUD Genitourinary: No Gastrointestinal: No Musculoskeletal: No Endocrine: Yes Hypothyroidsim HEENT: No Cancer: No Psychosocial: No Integumentary: No Physical Exam Vital Signs - First Documented 10/25/21 17:20 Temp 35.9 Pulse 81 Resp 17 B/P (MAP) 107/60 (76) O2 Delivery Room Air Capillary Refill : Height: 5'4.00" Weight: 192lbs. oz. 87.865856el; 38.00 BMI Method:Stated General Appearance: no apparent distress Neck: full range of motion, supple Respiratory: lungs clear, normal breath sounds Cardiovascular: normal peripheral pulses, regular rate, rhythm Gastrointestinal: non tender, soft Neurologic/Psychiatric: alert, normal mood/affect, oriented x 3 Skin: normal color, warm/dry Progress/Results/Core Measures Suspected Sepsis SIRS Temperature: Pulse: Respiratory Rate: Laboratory Tests 10/25/21 17:30: White Blood Count 5.8 Blood Pressure / Mean: Laboratory Tests 10/25/21 17:30: Creatinine 0.62, Platelet Count 205, Total Bilirubin 0.5 Results/Orders Lab Results Laboratory Tests Test 10/25/21 17:30 10/25/21 17:40 Range/Units White Blood Count 5.8 4.3-11.0 10^3/uL Red Blood Count 4.71 3.80-5.11 10^6/uL Hemoglobin 13.9 11.5-16.0 g/dL Hematocrit 40 35-52 % Mean Corpuscular Volume 84 80-99 fL Mean Corpuscular Hemoglobin 30 25-34 pg Mean Corpuscular Hemoglobin Concent 35 32-36 g/dL Red Cell Distribution Width 12.4 10.0-14.5 % Platelet Count 205 130-400 10^3/uL Mean Platelet Volume 11.0 9.0-12.2 fL Immature Granulocyte % (Auto) 0 % Neutrophils (%) (Auto) 49 42-75 % Lymphocytes (%) (Auto) 40 12-44 % Monocytes (%) (Auto) 9 0-12 % Eosinophils (%) (Auto) 1 0-10 % Basophils (%) (Auto) 0 0-10 % Neutrophils # (Auto) 2.9 1.8-7.8 X 10^3 Lymphocytes # (Auto) 2.4 1.0-4.0 X 10^3 Monocytes # (Auto) 0.5 0.0-1.0 X 10^3 Eosinophils # (Auto) 0.1 0.0-0.3 10^3/uL Basophils # (Auto) 0.0 0.0-0.1 10^3/uL Immature Granulocyte # (Auto) 0.0 0.0-0.1 10^3/uL Sodium Level 140 135-145 MMOL/L Potassium Level 3.8 3.6-5.0 MMOL/L Chloride Level 104 98-107 MMOL/L Carbon Dioxide Level 22 21-32 MMOL/L Anion Gap 14 5-14 MMOL/L Blood Urea Nitrogen 8 7-18 MG/DL Creatinine 0.62 0.60-1.30 MG/DL Estimat Glomerular Filtration Rate 120 BUN/Creatinine Ratio 13 Glucose Level 79 70-105 MG/DL Calcium Level 9.5 8.5-10.1 MG/DL Corrected Calcium 8.5-10.1 MG/DL Total Bilirubin 0.5 0.1-1.0 MG/DL Aspartate Amino Transf (AST/SGOT) 26 5-34 U/L Alanine Aminotransferase (ALT/SGPT) 23 0-55 U/L Alkaline Phosphatase 59 40-136 U/L Total Protein 7.9 6.4-8.2 GM/DL Albumin 4.8 H 3.2-4.5 GM/DL Urine Color YELLOW Urine Clarity CLOUDY Urine pH 7.0 5-9 Urine Specific [place] 1.025 H 1.016-1.022 Urine Protein TRACE H NEGATIVE Urine Glucose (UA) NEGATIVE NEGATIVE Urine Ketones 3+ H NEGATIVE Urine Nitrite NEGATIVE NEGATIVE Urine Bilirubin NEGATIVE NEGATIVE Urine Urobilinogen 0.2 < = 1.0 MG/DL Urine Leukocyte Esterase TRACE H NEGATIVE Urine RBC (Auto) 1+ H NEGATIVE Urine RBC NONE /HPF Urine WBC 5-10 H /HPF Urine Squamous Epithelial Cells 5-10 /HPF Urine Crystals NONE /LPF Urine Bacteria LARGE H /HPF Urine Casts NONE /LPF Urine Mucus MODERATE H /LPF Urine Culture Indicated YES My Orders Orders - KIM,MOLLY L DO Cbc With Automated Diff (10/25/21 17:27) Comprehensive Metabolic Panel (10/25/21 17:27) Ua Culture If Indicated (10/25/21 17:27) Ondansetron Injection (Zofran Injectio (10/25/21 17:30) Lactated Ringers (Lr 1000 Ml Iv Solution (10/25/21 17:27) Urine Culture (10/25/21 17:40) Medications Given in ED Current Medications Medications Dose Ordered Sig/Tanesha Route Start Time Stop Time Status Last Admin Dose Admin Ondansetron HCl 4 mg ONCE ONCE IVP 10/25/21 17:30 10/25/21 17:31 DC 10/25/21 17:31 4 MG Vital Signs/I&O 10/25/21 10/25/21 17:20 17:20 Temp 35.9 Pulse 81 Resp 17 B/P (MAP) 107/60 (76) O2 Delivery Room Air Room Air Capillary Refill : Progress Note : Progress Note Patient is known positive for Covid. She also has a urinary tract infection. Since she is I gave her doxylamine and vitamin B prescription for her nausea and vomiting. I will prescribe her Keflex for her urinary tract infection. She should follow-up with her OB and primary care provider for further outpatient management Departure Impression Primary Impression: COVID-19 Additional Impressions: Qualified Codes: Z3A.11 - 11 weeks gestation of Urinary tract infection Qualified Codes: N30.00 - Acute cystitis without hematuria Disposition: HOME, SELF-CARE Condition: Stable Departure-Patient Inst. Referrals: JANET COATES MD (PCP) Primary Care Physician CHEMA HEATH APRN (Family) Primary Care Physician Patient Instructions: COVID-19 and , Taking Mzfc-eai-Zlmkmob Medicines During , Urinary Tract Infections in Add. Discharge Instructions: follow up with your pcp/wardrobe specialist as needed. clear liquid diet, advance as tolerated. All discharge instructions reviewed with patient and/or family. Voiced understanding. Scripts Cephalexin (Cephalexin) 500 Mg Tablet 500 MG PO QID, #20 TAB 0 Refills Prov: MOLLY KIM DO 10/25/21 Doxylamine Succinate/Vit B6 (Doxylamine-Pyridoxine 10-10 mg) 1 Each Tablet. 1 EACH PO Q6H PRN for NAUSEA-1ST LINE, #30 TAB Prov: MOLLY KIM DO 10/25/21 MOLLY KIM DO Oct 25, 2021 17:22
[2021-10-25] MEDS ORDERED: LACTATED RINGERS 1,000 ML IV STA (17:27)
[2021-10-25] MEDS ORDERED: ONDANSETRON 4 MG/2 ML (SDV) Z0FRAN IVP ONE (17:30)
[2021-10-25 17:38] LABS: HEMATOCRIT 40 % (35-52); HEMOGLOBIN 13.9 g/dL (11.5-16.0); MEAN CORPUSCULAR HEMOGLOBIN 30 pg (25-34); MEAN CORPUSCULAR VOLUME 84 fL (80-99); WHITE BLOOD COUNT 5.8 10^3/uL (4.3-11.0)
[2021-10-25 17:39] LABS: BASOPHILS % (AUTO) 0 % (0-10); EOSINOPHILS # (AUTO) 0.1 10^3/uL (0.0-0.3); EOSINOPHILS % (AUTO) 1 % (0-10); LYMPHOCYTES # (AUTO) 2.4 X 10^3 (1.0-4.0); LYMPHOCYTES % (AUTO) 40 % (12-44); MEAN CORPUSCULAR HGB CONC 35 g/dL (32-36); MONOCYTES # (AUTO) 0.5 X 10^3 (0.0-1.0); MONOCYTES % (AUTO) 9 % (0-12); NEUTROPHILS # (AUTO) 2.9 X 10^3 (1.8-7.8); NEUTROPHILS % (AUTO) 49 % (42-75); PLATELET COUNT 205 10^3/uL (130-400)
[2021-10-25 17:46] LABS: BILIRUBIN,URINE NEGATIVE (NEGATIVE); CLARITY,URINE CLOUDY; COLOR,URINE YELLOW; GLUCOSE, URINE (UA) NEGATIVE (NEGATIVE); KETONES,URINE 3+ (NEGATIVE); LEUKOCYTE ESTERASE ,URINE TRACE (NEGATIVE); NITRITE,URINE NEGATIVE (NEGATIVE); PROTEIN,URINE TRACE (NEGATIVE)
[2021-10-25] MEDS ORDERED: DOXY1TAB8 PO (17:50)
[2021-10-25 17:51] LABS: BACTERIA,URINE LARGE /HPF
[2021-10-25 17:59] LABS: CHLORIDE 104 MMOL/L (98-107); POTASSIUM 3.8 MMOL/L (3.6-5.0); SODIUM 140 MMOL/L (135-145)
[2021-10-25 18:00] LABS: ALANINE AMINOTRANSFERASE 23 U/L (0-55); ALBUMIN 4.8 GM/DL (3.2-4.5); ALKALINE PHOSPHATASE 59 U/L (40-136); BILIRUBIN,TOTAL 0.5 MG/DL (0.1-1.0); BUN/CREATININE RATIO 13; CALCIUM 9.5 MG/DL (8.5-10.1); CARBON DIOXIDE 22 MMOL/L (21-32); CREATININE SERUM 0.62 MG/DL (0.60-1.30); GFR ESTIMATED 120; GLUCOSE 79 MG/DL (70-105); TOTAL PROTEIN 7.9 GM/DL (6.4-8.2)
[2021-10-25] MEDS ORDERED: CEPH500T PO (18:21)
[2021-10-25 18:30] VITALS: BP 126/84
== END 2021-10-25 18:30 | disposition home or self-care (01) ==
LOC: EDUNIT# 17:15 → ER FS 17:17
DX: O98.511 Other viral diseases complicating pregnancy, first trimester (principal); U07.1 COVID-19; O23.11 Infections of bladder in pregnancy, first trimester; O99.281 Endocrine, nutritional and metabolic diseases complicating pregnancy, first trimester; Z73.0 Burn-out; Z79.890 Hormone replacement therapy; Z3A.11 11 weeks gestation of pregnancy
CPT/HCPCS: 36415; 80053; 81000; 85025; 87088; 99282

== ENCOUNTER 2022-02-23 12:27 | Emergency (ER) | payer MEDICAID ==
[~2022-02-23] VITALS: Ht 162.6 cm; Wt 98.9 kg
[~2022-02-23 12:27] MED LIST changes: +CEPH500T PO; +DOXY1TAB8 PO
[2022-02-23] MEDS ORDERED: NS IV 500 ML 500 ML IV ONE (12:45)
[2022-02-23 12:51] LABS: BILIRUBIN,URINE NEGATIVE (NEGATIVE); CLARITY,URINE TURBID; COLOR,URINE YELLOW; GLUCOSE, URINE (UA) NEGATIVE (NEGATIVE); KETONES,URINE NEGATIVE (NEGATIVE); LEUKOCYTE ESTERASE ,URINE 1+ (NEGATIVE); NITRITE,URINE NEGATIVE (NEGATIVE); PH,URINE 7.5 (5-9); PROTEIN,URINE 1+ (NEGATIVE)
--- NOTE | 2022-02-23 12:51 | ED Abdominal Pain ---
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 It comes and goes. It started about 8 AM this morning but has just gotten worse. She has not taken anything for it. She says she gets nauseated and even puked a little when the pain got its worst. She does not have nausea between them. She does not feel sick nor does she have malaise, fevers chills cough shortness of air diarrhea or constipation. G4, P1 at 29 weeks under the care of Dr. Griffiths at [facility] for obstetrics and a high value associate provider in [place] because there is something wrong with the baby's brain and it does not have enough fluid. She has had MRI and ultrasounds. She is going back for another ultrasound soon. She has not taken any medications. She is not on anything besides vitamins. She does not smoke, drink or use recreational drugs. She denies dysuria or new discharge. No fluid leakage or bleeding. She likens the pain to the cramping like a contraction. She says they come about every 10 minutes and last for a minute or so. Last vaginal intercourse was Monday, 3 days prior. She called her OB provider this morning but the pain just kept getting worse and she has not heard back yet. Allergies and Home Medications Allergies Coded Allergies: No Known Drug Allergies (Unverified , 05/12/19) Patient Home Medication List Home Medication List Reviewed: Yes Cephalexin (Cephalexin) 500 Mg Tablet, 500 MG PO QID Prescribed by: MOLLY KIM on 10/25/21 182 Doxylamine Succinate/Vit B6 (Doxylamine-Pyridoxine 10-10 mg) 1 Each Tablet., 1 EACH PO Q6H PRN for NAUSEA-1ST LINE Prescribed by: MOLLY KIM on 10/25/21 175 Ibuprofen (Ibuprofen) 800 Mg Tablet, 800 MG PO Q8H PRN for PAIN Prescribed by: MARIA FERNANDA JEREZ on 07/12/20 0827 Levothyroxine Sodium (Levothyroxine Sodium) 75 Mcg Tablet, 75 MCG PO DAILY, (Reported) Entered as Reported by: SILVERIO GUZMÁN on 07/12/20 0735 Ondansetron (Ondansetron Odt) 4 Mg Tab.rapdis, 4 MG PO Q8H Prescribed by: IAN TOMAS on 05/12/19 1444 Tamsulosin HCl (Flomax) 0.4 Mg Cap, 0.4 MG PO DAILY Prescribed by: MARIA FERNANDA JEREZ on 07/12/20 0827 Review of Systems Review of Systems Constitutional: No chills, No diaphoresis EENTM: No Blurred Vision, No Double Vision, No Eye Pain Respiratory: Denies Cough, Denies Shortness of Air Cardiovascular: Denies Chest Pain, Denies Lightheadedness Gastrointestinal: See HPI, Abdominal Pain; Denies Constipated, Denies Diarrhea; Nausea; Denies Poor Fluid Intake Genitourinary: Denies Burning, Denies Discharge Musculoskeletal: No back pain, No joint pain All Other Systems Reviewed Negative Unless Noted: Yes Past Novpdll-Jyghob-Wlxjnk Hx Patient Social History Tobacco Use?: No Use of E-Cig and/or Vaping dev: No Substance use?: No Alcohol Use?: No Seasonal Allergies Seasonal Allergies: No Past Medical History Surgeries: Yes Gallbladder Respiratory: No Cardiac: No Neurological: 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 oz. 87.632949kb; 35.00 BMI Method:Stated General Appearance: WD/WN, mild distress HEENT: PERRL/EOMI, pharynx normal Neck: full range of motion, supple, normal inspection Respiratory: lungs clear, normal breath sounds, no respiratory distress, no accessory muscle use Cardiovascular: normal peripheral pulses, regular rate, rhythm Gastrointestinal: normal bowel sounds, non tender, soft, other (Gravid with fundus approximately 27 cm above the pubic symphysis) Extremities: normal range of motion, no calf tenderness, normal capillary refill Back: normal inspection, no CVA tenderness, no vertebral tenderness, muscle spasm (Para lumbar bilateral) Neurologic/Psychiatric: alert, normal mood/affect, oriented x 3 Skin: normal color, warm/dry Progress/Results/Core Measures Results/Orders Lab Results Laboratory Tests Test 02/23/22 12:35 02/23/22 12:55 Range/Units White Blood Count 12.6 H 4.3-11.0 10^3/uL Red Blood Count 4.16 3.80-5.11 10^6/uL Hemoglobin 11.7 11.5-16.0 g/dL Hematocrit 34 L 35-52 % Mean Corpuscular Volume 81 80-99 fL Mean Corpuscular Hemoglobin 28 25-34 pg Mean Corpuscular Hemoglobin Concent 35 32-36 g/dL Red Cell Distribution Width 13.3 10.0-14.5 % Platelet Count 200 130-400 10^3/uL Mean Platelet Volume 10.8 9.0-12.2 fL Immature Granulocyte % (Auto) 1 % Neutrophils (%) (Auto) 87 H 42-75 % Lymphocytes (%) (Auto) 7 L 12-44 % Monocytes (%) (Auto) 5 0-12 % Eosinophils (%) (Auto) 0 0-10 % Basophils (%) (Auto) 0 0-10 % Neutrophils # (Auto) 10.9 H 1.8-7.8 10^3/uL Lymphocytes # (Auto) 0.9 L 1.0-4.0 10^3/uL Monocytes # (Auto) 0.6 0.0-1.0 10^3/uL Eosinophils # (Auto) 0.1 0.0-0.3 10^3/uL Basophils # (Auto) 0.0 0.0-0.1 10^3/uL Immature Granulocyte # (Auto) 0.1 0.0-0.1 10^3/uL My Orders Orders - JENNIFER WALKER Ua Culture If Indicated (02/23/22 12:35) Urine Bedside (02/23/22 12:35) Ed Iv/Invasive Line Start (02/23/22 12:43) Ns Iv 500 Ml (Sodium Chloride 0.9%) (02/23/22 12:45) Cbc With Automated Diff (02/23/22 12:43) Comprehensive Metabolic Panel (02/23/22 12:43) Crp Fs (02/23/22 12:43) Wet Prep (02/23/22 12:43) Acetaminophen Tablet (Tylenol Tablet) (02/23/22 13:00) Manual Differential (02/23/22 12:55) Medications Given in ED Current Medications Medications Dose Ordered Sig/Tanesha Route Start Time Stop Time Status Last Admin Dose Admin Sodium Chloride 500 ml @ 0 mls/hr Q0M ONCE IV 02/23/22 12:45 02/23/22 12:46 DC 02/23/22 12:53 1,000 MLS/HR Progress Progress Note : Time: 12:52 Progress Note Patient is borderline hypertensive but she is also in some discomfort at 139/88. Will give her some Tylenol check some urine and labs. We will get her to do a wet prep swab. I do not have any ultrasound imaging to reference but she says she had ultrasound done at [facility] as well as in [place]. 500 cc normal saline. Her urine is dark and cloudy. Departure Impression Primary Impression: Premature labor after 22 weeks and before 37 weeks without delivery Disposition: 01 HOME, SELF-CARE Condition: Stable Transfer Transfer Reason: Exceeds level of care (Needs OB monitoring) Time Spoke to Accepting Phy: 12:50 Transfer Progress Notes Discussed the case with Dr. Griffiths and she agrees to accept the patient to labor and delivery at [facility] in [facility]. She is the primary provider for this patient's OB. We will send her by EMS and the patient is okay with this plan. Transfer Facility: [place], [place] Method of Transfer: EMS Departure-Patient Inst. Referrals: CHEMA HEATH APRN (PCP) Primary Care Physician [facility] (Family) Primary Care Physician JENNIFER WALKER February 23, 2022 12:51
[2022-02-23 12:59] LABS: BASOPHILS % (AUTO) 0 % (0-10); EOSINOPHILS # (AUTO) 0.1 10^3/uL (0.0-0.3); EOSINOPHILS % (AUTO) 0 % (0-10); HEMATOCRIT 34 % (35-52); HEMOGLOBIN 11.7 g/dL (11.5-16.0); LYMPHOCYTES # (AUTO) 0.9 10^3/uL (1.0-4.0); LYMPHOCYTES % (AUTO) 7 % (12-44); MEAN CORPUSCULAR HEMOGLOBIN 28 pg (25-34); MEAN CORPUSCULAR HGB CONC 35 g/dL (32-36); MEAN CORPUSCULAR VOLUME 81 fL (80-99); MEAN PLATELET VOLUME 10.8 fL (9.0-12.2); MONOCYTES # (AUTO) 0.6 10^3/uL (0.0-1.0); MONOCYTES % (AUTO) 5 % (0-12); NEUTROPHILS # (AUTO) 10.9 10^3/uL (1.8-7.8); NEUTROPHILS % (AUTO) 87 % (42-75); PLATELET COUNT 200 10^3/uL (130-400); WHITE BLOOD COUNT 12.6 10^3/uL (4.3-11.0)
[2022-02-23] MEDS ORDERED: ACETAMINOPHEN 500 MG TAB (TYLENOL) PO ONE (13:00)
[2022-02-23 13:20] VITALS: BP 137/82
[2022-02-23 13:24] LABS: BACTERIA,URINE LARGE /HPF; SQUAMOUS EPITHELIAL CELL,UR >50 /HPF
[2022-02-23 13:26] LABS: CALCIUM 8.7 MG/DL (8.5-10.1); CREATININE SERUM 0.54 MG/DL (0.60-1.30); POTASSIUM 3.5 MMOL/L (3.6-5.0)
[2022-02-23 13:27] LABS: ALBUMIN 3.8 GM/DL (3.2-4.5); BILIRUBIN,TOTAL 0.4 MG/DL (0.1-1.0); TOTAL PROTEIN 6.8 GM/DL (6.4-8.2)
[2022-02-23 13:36] LABS: BAND NEUTROPHILS 6 %; BASOPHILS % (MANUAL) 0 %; EOSINOPHILS % (MANUAL) 2 %; LYMPHOCYTES % (MANUAL) 6 %; MONOCYTES % (MANUAL) 3 %; NEUTROPHILS % (MANUAL) 83 %
== END 2022-02-23 13:20 | disposition still patient (30) ==
LOC: EDUNIT# 12:27 → ER FS 12:29
DX: O60.03 Preterm labor without delivery, third trimester (principal); Z79.899 Other long term (current) drug therapy; Z3A.29 29 weeks gestation of pregnancy
CPT/HCPCS: 36415; 80053; 81000; 84703; 85007; 85027; 86141; 87088; 87210

== ENCOUNTER 2022-02-23 14:30 | Outpatient (CLI) | payer MEDICAID ==
[2022-02-23] VITALS (7 sets, daily range): BP systolic 111–132; BP diastolic 55–61
[2022-02-23 15:34] LABS: BILIRUBIN,URINE NEGATIVE (NEGATIVE); CLARITY,URINE CLEAR; COLOR,URINE ORANGE; GLUCOSE, URINE (UA) NEGATIVE (NEGATIVE); KETONES,URINE 1+ (NEGATIVE); LEUKOCYTE ESTERASE ,URINE TRACE (NEGATIVE); NITRITE,URINE NEGATIVE (NEGATIVE); PH,URINE 6.5 (5-9); PROTEIN,URINE TRACE (NEGATIVE)
[2022-02-23 15:41] LABS: BACTERIA,URINE MODERATE /HPF; RBC,URINE 0-2 /HPF
[2022-02-23] MEDS ORDERED: cefTRIAXone 1 GM PRE-MIX 50 ML IV ONE (15:45)
--- NOTE | 2022-02-24 08:13 | Physician Query-Final Dx ---
Clinic Account Progress/Dx Physician Query: Please give diagnosis Please include # weeks gestation Date of Service February 23, 2022 at 14:30 ,OctFebruary 24, 2022 08:13
== END 2022-02-23 16:45 | disposition home or self-care (01) ==
LOC: WSo 14:30 → LDRP 14:31 → WSo 16:45
PROVIDERS: ATTEND Family Medicine
DX: O47.9 False labor, unspecified (principal); Z3A.00 Weeks of gestation of pregnancy not specified
CPT/HCPCS: 81000; 87088; 96374; 99213

== ENCOUNTER 2023-05-26 08:42 | Emergency (ER) | payer MEDICAID ==
[2023-05-26 08:58] LABS: BILIRUBIN,URINE NEGATIVE (NEGATIVE); CLARITY,URINE TURBID; COLOR,URINE YELLOW; GLUCOSE, URINE (UA) NEGATIVE (NEGATIVE); KETONES,URINE NEGATIVE (NEGATIVE); LEUKOCYTE ESTERASE ,URINE TRACE (NEGATIVE); NITRITE,URINE NEGATIVE (NEGATIVE); PROTEIN,URINE TRACE (NEGATIVE)
[2023-05-26] MEDS ORDERED: ONDANSETRON 4 MG/2 ML (SDV) Z0FRAN IVP STA ×2 (09:01→09:52)
[2023-05-26] MEDS ORDERED: PANTOPRAZOLE 40 MG (PROTONIX) VIAL IV STA (09:01)
[2023-05-26] MEDS ORDERED: NS IV 1000 ML 1,000 ML IV STA ×2 (09:01→09:29)
[2023-05-26] MEDS ORDERED: KETOROLAC INJ 15 MG/ML VIAL IVP STA (09:01)
[2023-05-26 09:09] LABS: BACTERIA,URINE LARGE /HPF; SQUAMOUS EPITHELIAL CELL,UR TNTC /HPF; WBC,URINE 50-100 /HPF
--- NOTE | 2023-05-26 09:09 | ED GI ---
General Chief Complaint: Abdominal/GI Problems Stated Complaint: VOMITING Nursing Triage Note: PT REPORTS SHE GOT FOOD POISONING YESTERDAY AT [place] [employer] [place] OF [place]. SHE HAS BEEN VOMITING, NAUSEA, AND DIARRHEA. Source of Information: Patient History of Present Illness Date Seen by Provider: May 26, 2023 Time Seen by Provider: 08:49 Initial Comments 23-year-old female presenting with complaints of food poisoning. She states that she ate in [place] with coworkers yesterday and has been having nausea, vomiting, diarrhea since then. She does have some abdominal cramping. She has a mild headache. She states that she has an IUD so she has not had regular periods but thinks her last 1 was about a month ago. She has been taking Pepto- Bismol with some minimal improvement in her symptoms. She denies having any fever or chills. There is no pain or burning with urination. She has had decreased urination due to decreased oral intake and having vomiting with diar carol. She states the diarrhea is watery. Timing/Duration: 1 Day Severity/Quality: Mild, Cramping (Mild abdominal cramping) Location: Generalized Abdomen Activities at Onset: None Modifying Factors: Worsens With Eating, Worsens With Palpation Associated Symptoms: No Back Pain, No Chest Pain, No Diaphoresis, No Fever/Chills, No Fatigue; Headache; No Heartburn; Nausea/Vomiting; No Rash, No Shortness of Air, No Swelling/Mass in Abdomen, No Syncope, No Weakness Allergies and Home Medications Allergies Coded Allergies: No Known Drug Allergies (Unverified , 05/12/19) Patient Home Medication List Home Medication List Reviewed: Yes Levothyroxine Sodium (Levothyroxine Sodium) 75 Mcg Tablet, 75 MCG PO DAILY, (Reported) Entered as Reported by: SILVERIO GUZMÁN on 07/12/20 0735 Nitrofurantoin Monohyd/M-Cryst (Macrobid 100 mg Capsule) 100 Mg Capsule, 1 TAB PO BID Prescribed by: MARIA FERNANDA JEREZ on 05/26/23 0945 Ondansetron (Ondansetron Odt) 4 Mg Tab.rapdis, 4 MG PO Q6H PRN for NAUSEA/VOMITING Prescribed by: MARIA FERNANDA JEREZ on 05/26/23 0945 Discontinued Medications Cephalexin (Cephalexin) 500 Mg Tablet, 500 MG PO QID Prescribed by: MOLLY KIM on 10/25/21 182 Last Action: Discontinued Doxylamine Succinate/Vit B6 (Doxylamine-Pyridoxine 10-10 mg) 1 Each Tablet.dr, 1 EACH PO Q6H PRN for NAUSEA-1ST LINE Prescribed by: MOLLY KIM on 10/25/21 175 Last Action: Discontinued Tamsulosin HCl (Flomax) 0.4 Mg Cap, 0.4 MG PO DAILY Prescribed by: MARIA FERNANDA JEREZ on 07/12/20 08 Last Action: Discontinued Review of Systems Review of Systems Constitutional: No chills, No fever; malaise EENTM: No Symptoms Reported Respiratory: No Symptoms Reported Cardiovascular: No Symptoms Reported Gastrointestinal: See HPI Genitourinary: See HPI Musculoskeletal: no symptoms reported Skin: no symptoms reported Psychiatric/Neurological: No Symptoms Reported Past [id number] Hx Patient Social History Tobacco Use?: No Use of E-Cig and/or Vaping dev: Yes E-Cig or Vaping type used: Nicotine Use of E-Cig and/or Vaping [place]: Current Everyday User Substance use?: No Alcohol Use?: No Pt feels they are or have been: No Seasonal Allergies Seasonal Allergies: No Past Medical History Surgeries: Yes Gallbladder Respiratory: No Cardiac: No 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 oz. [id number]; 35.00 BMI Method:Stated General Appearance: WD/WN, no apparent distress Respiratory: chest non-tender, lungs clear, normal breath sounds Cardiovascular: normal peripheral pulses, regular rate, rhythm Gastrointestinal: normal bowel sounds, non tender, soft, no pulsatile mass Rectal: deferred Extremities: normal range of motion, non-tender, normal capillary refill Neurologic/Psychiatric: hemmer lockstitch II-XII nml as tested, alert, oriented x 3 Skin: normal color, warm/dry Progress/Results/Core Measures Results/Orders Lab Results Laboratory Tests Test 05/26/23 08:54 05/26/23 09:07 Range/Units Urine Color YELLOW Urine Clarity TURBID Urine pH 6.0 5-9 Urine Specific [place] >=1.030 1.016-1.022 Urine Protein TRACE H NEGATIVE Urine Glucose (UA) NEGATIVE NEGATIVE Urine Ketones NEGATIVE NEGATIVE Urine Nitrite NEGATIVE NEGATIVE Urine Bilirubin NEGATIVE NEGATIVE Urine Urobilinogen 2.0 < = 1.0 MG/DL Urine Leukocyte Esterase TRACE H NEGATIVE Urine RBC (Auto) NEGATIVE NEGATIVE Urine RBC NONE /HPF Urine WBC 50-100 H /HPF Urine Squamous Epithelial Cells TNTC H /HPF Urine Crystals NONE /LPF Urine Bacteria LARGE H /HPF Urine Casts NONE /LPF Urine Mucus NEGATIVE /LPF Urine Culture Indicated NO White Blood Count 9.5 4.3-11.0 10^3/uL Red Blood Count 4.78 3.80-5.11 10^6/uL Hemoglobin 13.7 11.5-16.0 g/dL Hematocrit 41 35-52 % Mean Corpuscular Volume 85 80-99 fL Mean Corpuscular Hemoglobin 29 25-34 pg Mean Corpuscular Hemoglobin Concent 34 32-36 g/dL Red Cell Distribution Width 12.4 10.0-14.5 % Platelet Count 207 130-400 10^3/uL Mean Platelet Volume 10.1 9.0-12.2 fL Immature Granulocyte % (Auto) 0 % Neutrophils (%) (Auto) 87 H 42-75 % Lymphocytes (%) (Auto) 7 L 12-44 % Monocytes (%) (Auto) 5 0-12 % Eosinophils (%) (Auto) 1 0-10 % Basophils (%) (Auto) 0 0-10 % Neutrophils # (Auto) 8.2 H 1.8-7.8 10^3/uL Lymphocytes # (Auto) 0.7 L 1.0-4.0 10^3/uL Monocytes # (Auto) 0.5 0.0-1.0 10^3/uL Eosinophils # (Auto) 0.1 0.0-0.3 10^3/uL Basophils # (Auto) 0.0 0.0-0.1 10^3/uL Immature Granulocyte # (Auto) 0.0 0.0-0.1 10^3/uL Neutrophils % (Manual) 86 % Lymphocytes % (Manual) 7 % Monocytes % (Manual) 7 % Sodium Level 136 135-145 MMOL/L Potassium Level 4.0 3.6-5.0 MMOL/L Chloride Level 102 98-107 MMOL/L Carbon Dioxide Level 21 21-32 MMOL/L Anion Gap 13 5-14 MMOL/L Blood Urea Nitrogen 11 7-18 MG/DL Creatinine 0.75 0.60-1.30 MG/DL Estimat Glomerular Filtration Rate 114 BUN/Creatinine Ratio 15 Glucose Level 101 70-105 MG/DL Calcium Level 8.9 8.5-10.1 MG/DL Corrected Calcium 8.6 8.5-10.1 MG/DL Total Bilirubin 0.8 0.1-1.0 MG/DL Aspartate Amino Transf (AST/SGOT) 19 5-34 U/L Alanine Aminotransferase (ALT/SGPT) 29 0-55 U/L Alkaline Phosphatase 77 40-136 U/L Total Protein 7.1 6.4-8.2 GM/DL Albumin 4.4 3.2-4.5 GM/DL Lipase 37 8-78 U/L My Orders Orders - MARIA FERNANDA JEREZ MD Ua Culture If Indicated (05/26/23 08:49) Urine Bedside (05/26/23 08:49) Comprehensive Metabolic Panel (05/26/23 09:01) Lipase (05/26/23 09:01) Ed Iv/Invasive Line Start (05/26/23 09:01) Cbc With Automated Diff (05/26/23 09:01) Ns Iv 1000 Ml (Sodium Chloride 0.9%) (05/26/23 09:01) Ondansetron Injection (Zofran Injectio (05/26/23 09:01) Pantoprazole Injection (Protonix Injecti (05/26/23 09:01) Ketorolac Injection (Ketorolac Injection (05/26/23 09:01) Manual Differential (05/26/23 09:07) Ceftriaxone Iv/Im (Ceftriaxone Iv/Im) (05/26/23 09:26) Ns Iv 1000 Ml (Sodium Chloride 0.9%) (05/26/23 09:29) Ondansetron Injection (Zofran Injectio (05/26/23 09:52) Vital Signs/I&O 05/26/23 05/26/23 08:55 10:20 Temp 37.1 37.1 Pulse 97 97 Resp 16 16 B/P (MAP) 101/61 (74) 101/61 Pulse Ox 98 98 O2 Delivery Room Air Room Air Blood Pressure Mean: 74 Progress Progress Note #1: Progress Note Potential diagnosis of gastroenteritis, food poisoning, stomach flu, UTI, . Obtain peripheral IV access and send labs for complete blood count, comprehensive metabolic profile, lipase. Urinalysis to check for signs of infection and her hydration level as well as a bedside test. Normal saline 1 L IV fluid bolus for hydration, Toradol 15 mg IV for abdominal cramping and headache, pantoprazole 40 mg IV for gastric irritation, Zofran 4 mg IV for nausea and vomiting. Progress Note #2: Time: 09:21 Progress Note Labs show no acute abnormality on the CBC. The urinalysis has elevated specific gravity greater than 1.030 for dehydration. She also has white blood cells and bacteria consistent with a UTI. Will add on a second liter of normal saline for additional hydration and ceftriaxone 1 g IV for UTI. Will plan on DC Macrobid 100 mg p.o. twice daily x 5 days for UTI at home as well as Zofran 4 mg ODT every 6 hours. Nausea vomiting x 3 days or 12 pills. 0946 comprehensive metabolic profile shows no acute electrolyte abnormality. Negative lipase at 36. Will try some ice chips or oral intake while waiting on the fluids and antibiotics to infuse. Progress Note #3: Progress Note Patient is tolerating oral intake here in the ED. She has had no vomiting since arrival. She has also had no diarrhea since arrival in the ED. She was feeling better after fluids and antibiotics had infused as well as the nausea medicine. Discharged to home with Zofran ODT as well as 5 days of Macrobid. Encouraged to check back with the clinic if not improving or having more problems. Departure Impression Primary Impression: Food poisoning Additional Impressions: Gastroenteritis Acute cystitis without hematuria Disposition: 01 HOME, SELF-CARE Condition: Improved Departure-Patient Inst. Decision time for Depature: 10:19 Referrals: CHEMA HEATH APRN (PCP) Primary Care Physician [facility] (Family) Primary Care Physician Patient Instructions: Urinary Tract Infection, Adult ED, Food Poisoning ED, Dehydration, Adult ED Add. Discharge Instructions: Try to keep sipping on fluids and stay well-hydrated. Take the full course of antibiotics for the urine infection. Continue to use the nausea medicine as needed to help keep your stomach settled. All discharge instructions reviewed with patient and/or family. Voiced understanding. Scripts Ondansetron (Ondansetron Odt) 4 Mg Tab.rapdis 4 MG PO Q6H PRN for NAUSEA/VOMITING for 3 Days, #12 TAB 0 Refills Prov: MARIA FERNANDA JEREZ MD 05/26/23 Nitrofurantoin Monohyd/M-Cryst (Macrobid 100 mg Capsule) 100 Mg Capsule 1 TAB PO BID for UTI for 5 Days, #10 CAP 0 Refills Prov: MARIA FERNANDA JEREZ MD 05/26/23 Work/School Note: Work Release Form Date Seen in the Emergency Department: May 26, 2023 Return to Work: May 29, 2023 Restrictions: Return-No Vomiting(24hrs) MARIA FERNANDA JEREZ MD May 26, 2023 09:08
[2023-05-26 09:18] LABS: BASOPHILS % (AUTO) 0 % (0-10); EOSINOPHILS # (AUTO) 0.1 10^3/uL (0.0-0.3); EOSINOPHILS % (AUTO) 1 % (0-10); HEMATOCRIT 41 % (35-52); HEMOGLOBIN 13.7 g/dL (11.5-16.0); LYMPHOCYTES # (AUTO) 0.7 10^3/uL (1.0-4.0); LYMPHOCYTES % (AUTO) 7 % (12-44); MEAN CORPUSCULAR HEMOGLOBIN 29 pg (25-34); MEAN CORPUSCULAR HGB CONC 34 g/dL (32-36); MEAN CORPUSCULAR VOLUME 85 fL (80-99); MEAN PLATELET VOLUME 10.1 fL (9.0-12.2); MONOCYTES # (AUTO) 0.5 10^3/uL (0.0-1.0); MONOCYTES % (AUTO) 5 % (0-12); NEUTROPHILS # (AUTO) 8.2 10^3/uL (1.8-7.8); NEUTROPHILS % (AUTO) 87 % (42-75); PLATELET COUNT 207 10^3/uL (130-400); WHITE BLOOD COUNT 9.5 10^3/uL (4.3-11.0)
[2023-05-26] MEDS ORDERED: cefTRIAXone IV/IM 1,000 MG in NS (IVPB) 50 ML 50 ML IV STA (09:26)
[2023-05-26 09:41] LABS: LYMPHOCYTES % (MANUAL) 7 %; NEUTROPHILS % (MANUAL) 86 %
[2023-05-26 09:42] LABS: MONOCYTES % (MANUAL) 7 %
[2023-05-26 09:44] LABS: ALBUMIN 4.4 GM/DL (3.2-4.5); BILIRUBIN,TOTAL 0.8 MG/DL (0.1-1.0); CALCIUM 8.9 MG/DL (8.5-10.1); CREATININE SERUM 0.75 MG/DL (0.60-1.30); TOTAL PROTEIN 7.1 GM/DL (6.4-8.2)
[2023-05-26] MEDS ORDERED: NITR-65 PO (09:45)
[2023-05-26] MEDS ORDERED: ONDA4TAB11 PO (09:45)
[2023-05-26 10:20] VITALS: BP 101/61
== END 2023-05-26 10:20 | disposition home or self-care (01) ==
LOC: EDUNIT# 08:42 → ER FS 08:43
DX: T62.91XA Toxic effect of unspecified noxious substance eaten as food, accidental (unintentional), initial encounter (principal); N30.00 Acute cystitis without hematuria; K52.9 Noninfective gastroenteritis and colitis, unspecified; F17.290 Nicotine dependence, other tobacco product, uncomplicated; Z28.310 Unvaccinated for COVID-19
CPT/HCPCS: 36415; 80053; 81000; 83690; 84703; 85007; 85027